=== PATIENT | male | born 1985 | race African-American/Black ===

== ENCOUNTER 2017-02-28 21:54 | Emergency (ER) | payer SELFPAY ==
[~2017-02-28] VITALS: Ht 185.4 cm; Wt 90.7 kg
[2017-02-28 22:23] VITALS: BP 132/69
[2017-02-28] MEDS ORDERED: Azithromycin 250mg tab ORAL ONE (22:45)
[2017-02-28] MEDS ORDERED: DOXYCYCLINE MO100 MG ORAL (22:46)
[2017-02-28 22:55] VITALS: BP 132/69
--- NOTE | 2017-03-01 05:45 | Emergency Room Report ---
History of Present Illness General Chief Complaint: General Complaint Source: Patient Present Illness HPI Patient presents with complaints of possible STD Patient is here with partner to report possible discharge However the patient denies any pain denies any fevers or chills denies any other rash Patient denies any abdominal pain Denies any recent travel Patient denies any testicular pain Allergies: Coded Allergies: Dust (Verified Allergy, Unknown, 02/28/17) Uncoded Allergies: CAT FUR (Allergy, Unknown, 02/28/17) GRASS (Allergy, Unknown, 02/28/17) POLLEN (Allergy, Unknown, 02/28/17) Patient History Past Medical History: see triage record Pertinent Family History: none Reviewed Nursing Documentation: PMH: Agreed, PSxH: Agreed Nursing Documentation-PMH Hx Asthma: Yes Review of Systems All Other Systems: negative except mentioned in HPI Physical Exam Vital Signs Date Time Temp Pulse Resp B/P Pulse Ox O2 Delivery O2 Flow Rate FiO2 02/28/17 22:14 98.1 111 15 132/69 99 Room Air Sp02 EP Interpretation: reviewed, normal General Appearance: well appearing, no apparent distress Head: normocephalic, atraumatic Eyes: bilateral eye EOMI, bilateral eye PERRL ENT: normal pharynx Neck: supple Respiratory: lungs clear Cardiovascular #1: regular rate, rhythm Gastrointestinal: normal bowel sounds, non tender, soft Musculoskeletal: normal inspection Neurologic: alert, oriented x3 Skin: no rash Lymphatic: no adenopathy Medical Decision Making Diagnostic Impression: Primary Impression: urethritis ER Course Patient was notified that STD testing is not performed to the emergency room given the lack of appropriate followup Clinically the patient can be treated And the patient has accepted this Patient was provided medication here in stable for close outpatient followup Last Vital Signs Date Time Temp Pulse Resp B/P Pulse Ox O2 Delivery O2 Flow Rate FiO2 02/28/17 22:55 98.1 111 15 132/69 99 Room Air Status: improved Disposition: HOME, SELF-CARE Condition: Improved Scripts Doxycycline Monohydrate* (DOXYCYCLINE MONOHYDRATE*) 100 Mg Capsule 100 MG ORAL Q12H, #10 CAP 0 Refills Prov: KRISTEN BIANCHI D.O. 02/28/17 Referrals: NOT CHOSEN [facility]/MD,REFERRING (PCP) Patient Instructions: Urethritis, Adult Additional Instructions: Patient is provided with the discharge instructions notified to follow up with primary doctor in the next 2-3 days otherwise return to the er with any worsening symptoms. Please note that this report is being documented using DRAGON technology. This can lead to erroneous entry secondary to incorrect interpretation by the dictating instrument. KRISTEN BIANCHI D.O. Mar 01, 2017 05:45
== END 2017-02-28 22:55 | disposition home or self-care (01) ==
LOC: EMR 22:17
DX: N34.2 Other urethritis (principal); Z91.048 Other nonmedicinal substance allergy status
CPT/HCPCS: 96372; 99283; J0696

== ENCOUNTER 2017-07-23 23:54 | Emergency (ER) | payer SELFPAY ==
[~2017-07-23] VITALS: Ht 182.9 cm; Wt 81.6 kg
[~2017-07-23 23:54] MED LIST: DOXYCYCLINE MO100 MG ORAL
[2017-07-24 00:14] VITALS: BP 103/68
--- NOTE | 2017-07-24 00:14 | Emergency Room Report ---
History of Present Illness General Chief Complaint: Medical Clearance Source: Patient Present Illness HPI Is a 31-year-old male with no significant past medical history. Is brought in by police for medical clearance. Patient said that when he get call his feet get locked up and to be painful. When he get warmed up he felt better. Otherwise has no other symptoms. He is asymptomatic now. Allergies: Coded Allergies: No Known Allergies (Unverified , 07/23/17) Patient History Past Medical History: see triage record, old chart reviewed Past Surgical History: none Pertinent Family History: none Social History: Denies: smoking Immunizations: other Reviewed Nursing Documentation: PMH: Agreed, PSxH: Agreed Nursing Documentation-PMH Past Medical History: No History, Except For Hx Asthma: Yes Review of Systems Eye: Denies: eye pain, blurred vision ENT: Denies: ear pain, nose congestion, throat swelling Respiratory: Denies: cough, shortness of breath Cardiovascular: Denies: chest pain, palpitations Gastrointestinal: Denies: abdominal pain, diarrhea, nausea, vomiting Musculoskeletal: Denies: back pain, joint pain Skin: Denies: rash Neurological: Denies: headache, numbness Endocrine: Denies: increased thirst, increased urine Hematologic/Lymphatic: Denies: easy bruising All Other Systems: negative except mentioned in HPI Physical Exam Vital Signs Date Time Temp Pulse Resp B/P (MAP) Pulse Ox O2 Delivery O2 Flow Rate FiO2 07/23/17 23:58 98.1 98 16 103/68 100 Room Air vitals normal Sp02 EP Interpretation: reviewed, normal General Appearance: well appearing, no apparent distress, alert Head: normocephalic, atraumatic Eyes: bilateral eye PERRL, bilateral eye EOMI ENT: hearing grossly normal, normal pharynx Neck: full range of motion, supple, no meningismus Respiratory: chest non-tender, lungs clear, normal breath sounds Cardiovascular #1: regular rate, rhythm, no murmur Gastrointestinal: normal bowel sounds, non tender, no mass, no organomegaly, no bruit, non-distended Musculoskeletal: back normal, gait/station normal, normal range of motion Psychiatric: mood/affect normal Skin: warm/dry Medical Decision Making Diagnostic Impression: Primary Impression: Neuropathy of both feet ER Course Patient present with neuropathy of his feet. Better now. We'll discharge home. No evidence of any trauma or infection. Last Vital Signs Date Time Temp Pulse Resp B/P (MAP) Pulse Ox O2 Delivery O2 Flow Rate FiO2 07/23/17 23:58 98.1 98 16 103/68 100 Room Air Status: improved Disposition: D/C TO LAW ENFORCEMENT IN [facility] Condition: Stable Referrals: NOT CHOSEN [facility]/,REFERRING (PCP) Additional Instructions: Followup with your doctor as needed. Return if worse. HENRY MCNAMARA M.D. Jul 24, 2017 00:14
[2017-07-24 00:22] VITALS: BP 103/68
== END 2017-07-24 00:22 ==
LOC: EMR 07-24 00:10
DX: G57.93 Unspecified mononeuropathy of bilateral lower limbs (principal); J45.909 Unspecified asthma, uncomplicated
CPT/HCPCS: 99283